=== PATIENT | male | born 1995 | race Caucasian/White ===

== ENCOUNTER 2020-06-03 12:32 | Emergency (ER) | payer SELFPAY ==
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
[2020-06-03] MEDS ORDERED: Diphtheria,Pertussis(Acell),Tetanus Vaccine 0.5 ML SDV IM ONE (13:20)
[2020-06-03] MEDS ORDERED: Diphtheria,Pertussis(Acell),Tetanus Vaccine 0.5 ML Syringe ONE (13:34)
== END 2020-06-03 14:07 | disposition home or self-care (01) ==
LOC: MW.ED 12:32
DX: T24.211A Burn of second degree of right thigh, initial encounter (principal); Z23 Encounter for immunization; X19.XXXA Contact with other heat and hot substances, initial encounter
CPT/HCPCS: 90471; 90715; 99284; 99291